=== PATIENT | male | born 1980 | race Asian ===

== ENCOUNTER 2017-02-08 12:06 | Emergency (ER) | payer OTHER ==
[~2017-02-08] VITALS: Ht 167.6 cm; Wt 81.8 kg
[2017-02-08 12:12] VITALS: BP 147/94; TEMP 98.2
== END 2017-02-08 14:30 | disposition home or self-care (01) ==
LOC: ED 12:06
DX: T63.461A Toxic effect of venom of wasps, accidental (unintentional), initial encounter (principal)
CPT/HCPCS: 99281

== ENCOUNTER 2017-02-08 19:24 | Emergency (ER) | payer OTHER ==
[~2017-02-08] VITALS: Ht 167.6 cm; Wt 81.6 kg
[2017-02-08 20:49] VITALS: BP 142/94; TEMP 98.4
== END 2017-02-08 20:50 | disposition home or self-care (01) ==
LOC: ED 19:24
DX: N34.2 Other urethritis (principal)
CPT/HCPCS: 87490; 87590; 96372; 99283; J0696

== ENCOUNTER 2017-09-06 12:32 | Emergency (ER) | payer OTHER ==
[~2017-09-06] VITALS: Ht 167.6 cm; Wt 79.4 kg
[2017-09-06 12:38] VITALS: BP 142/86; TEMP 98.4
== END 2017-09-06 14:04 | disposition home or self-care (01) ==
LOC: ED 12:32
DX: M54.2 Cervicalgia (principal); V89.0XXA Person injured in unspecified motor-vehicle accident, nontraffic, initial encounter
CPT/HCPCS: 99281

== ENCOUNTER 2019-03-19 10:47 | Emergency (ER) | payer OTHER ==
[~2019-03-19] VITALS: Ht 167.6 cm; Wt 83.0 kg
[2019-03-19 11:01] VITALS: TEMP 98.2
[2019-03-19 11:51] VITALS: BP 132/84
== END 2019-03-19 11:49 | disposition home or self-care (01) ==
LOC: ED 10:47
DX: S56.911A Strain of unspecified muscles, fascia and tendons at forearm level, right arm, initial encounter (principal)
CPT/HCPCS: 99281